=== PATIENT | male | born 1985 | race Caucasian/White ===

== ENCOUNTER 2018-03-13 21:22 | Emergency (ER) | payer SELFPAY ==
[~2018-03-13] VITALS: Ht 170.2 cm; Wt 99.8 kg
[2018-03-13 21:48] VITALS: BP 146/78
--- NOTE | 2018-03-13 21:49 | NUR ---
PT BIBSELF AMBULATORY TO ER BED 16. PT STATES "I THINK I WAS EXPOSED TO PESTICIDE/ CHEMICALS FROM WORK ON MY GENITALS AND BUTT" PT WAS SEEN BY PCP ON 02/02/18 AND WAS PRESCRIBED STEROID CREAMS WITH NO RELIEF. PT AOX3 RR EVEN AND UNLABORED. NO SOB NOTED. NAD NOTED. NO NVD AT THIS TIME. PT GOWNED AND PLACED ON MONITOR.
--- NOTE | 2018-03-13 22:10 | NUR ---
[facility] [place] in [facility] - 03/13/18 at 2250 by KAMAR PT PROVIDED WITH LEG BAG PER ORDER
== END 2018-03-13 22:52 | disposition home or self-care (01) ==
LOC: ER 21:22
DX: B02.9 Zoster without complications (principal)
CPT/HCPCS: A4606; Z7610